=== PATIENT | male | born 1980 | race African-American/Black ===

== ENCOUNTER 2017-03-12 18:53 | Emergency (ER) | payer OTHER ==
[~2017-03-12] VITALS: Ht 198.1 cm; Wt 85.7 kg
[~2017-03-12 18:53] MED LIST: ATARAX,VISTARIL25 MG PO; ATARAX,VISTARIL50 MG PO; BACTRIM,SEPT1 TABLET PO; CLINDAMYCIN HC150 MG PO; CLINDAMYCIN HC300 MG PO; KEFLEX500 MG PO; MOTRIN IB200 MG; MOTRIN800 MG PO; NAPROSYN500 MG PO; NO HOME MEDS; NOHOMEMEDS; NORCO 5/3251 TABLET PO; VALIUM5 MG PO; VIBRAMYCIN100 MG PO
[2017-03-12] MEDS ORDERED: BACTRIM,SEPT1 TABLET PO (22:12)
[2017-03-12 22:28] VITALS: BP 133/77
== END 2017-03-12 22:29 | disposition home or self-care (01) ==
LOC: EME 18:53 → RME 18:53
PROC: 0H91XZZ Drainage of Face Skin, External Approach (ICD-10-PCS; principal; 2017-03-12)
DX: L02.01 Cutaneous abscess of face (principal); Z86.14 Personal history of Methicillin resistant Staphylococcus aureus infection
CPT/HCPCS: 87070; 87075; 87077; 87147; 87186; 87205; 99281; 99283

== ENCOUNTER 2017-03-27 10:36 | Emergency (ER) | payer OTHER ==
[~2017-03-27] VITALS: Ht 198.1 cm; Wt 91.8 kg
[2017-03-27] MEDS ORDERED: MOTRIN800 MG PO (14:09)
[2017-03-27 15:04] VITALS: BP 120/88
== END 2017-03-27 15:05 | disposition home or self-care (01) ==
LOC: EME 10:36
DX: S20.229A Contusion of unspecified back wall of thorax, initial encounter (principal); S80.02XA Contusion of left knee, initial encounter; V49.40XA Driver injured in collision with unspecified motor vehicles in traffic accident, initial encounter; Y92.488 Other paved roadways as the place of occurrence of the external cause; Z86.14 Personal history of Methicillin resistant Staphylococcus aureus infection
CPT/HCPCS: 72040; 72100; 72170; 73564; 99281; 99285

== ENCOUNTER 2018-03-04 03:49 | Emergency (ER) | payer OTHER ==
[~2018-03-04] VITALS: Ht 198.1 cm; Wt 90.0 kg
[~2018-03-04 03:49] MED LIST changes: +NAPROXEN500 MG PO
[2018-03-04] MEDS ORDERED: MOTRIN800 MG PO (05:24)
[2018-03-04] MEDS ORDERED: PERCOCET 5/31 TABLET PO (05:24)
[2018-03-04 06:34] VITALS: BP 142/87
== END 2018-03-04 06:36 | disposition home or self-care (01) ==
LOC: EME 03:49
DX: S97.81XA Crushing injury of right foot, initial encounter (principal); W23.0XXA Caught, crushed, jammed, or pinched between moving objects, initial encounter; Y93.89 Activity, other specified; Y92.512 Supermarket, store or market as the place of occurrence of the external cause; Y99.0 Civilian activity done for income or pay; Z86.14 Personal history of Methicillin resistant Staphylococcus aureus infection
CPT/HCPCS: 73610; 99281; 99284